=== PATIENT | female | born 1980 | race Caucasian/White ===

== ENCOUNTER 2017-05-16 22:52 | Inpatient (IN) | payer MEDICARE, OTHER ==
[~2017-05-16] VITALS: Ht 157.5 cm; Wt 98.0 kg
[~2017-05-16 22:52] MED LIST: LURA40 PO
[2017-05-16 23:03] VITALS: BP 144/67; PULSE 89; RESP 16; TEMP 98.6; O2SAT 99
--- NOTE | 2017-05-17 01:58 | PD ---
HPI Chief Complaint: Psychiatric Symptoms Time Seen by Provider: 01:37 Travel History International Travel<30 days: No Contact w/Intl Traveler<30days: No Traveled to known affect area: No History of Present Illness HPI 36-year-old white female with a history of bipolar disorder presents emergency Department under [place] act by PD. The patient reportedly according the [place] act and made suicidal homicidal threats while at the [facility]. The patient denies this. The patient states that she's been under a lot of pressure taking care of all parents out the state. She states that her mother and father are both sick and she is been caring for them outside the state [facility]. She has been back in the state [facility] now for the past 6 months. She states that she does not understand why she was placed under Villa act. Even if she had made any statements she feels that this is a form of free speech. She denies any toxic ingestions. She states that she was seen at [facility] 4 days ago for nausea vomiting and a urinary tract infection. She is currently taking antibiotics. She states that her nausea vomiting and abdominal discomfort has resolved. She has no fever chills. No chest pain or shortness of breath. No urinary symptoms. She does smoke. She does not drink. She does not do drugs. Last period was 3 weeks ago. PFSH Past Medical History Narrative Medical Bipolar Bipolar Disorder: Yes Anxiety: Yes Depression: Yes Cancer: No Cardiovascular Problems: Yes Diabetes: No Diminished Hearing: No Endocrine: No Genitourinary: No Hypertension: Yes Immune Disorder: No Musculoskeletal: No Neurologic: No Psychiatric: Yes Reproductive: No Respiratory: No Schizophrenia: Yes (PER HX, PATIENT UNCLEAR) Tetanus Vaccination: Unknown Influenza Vaccination: No ?: Not : 1 Para: 0 : 1 Past Surgical History Narrative Surgical Oral Surgery: Yes (wisdom teeth removed) Social History Alcohol Use: No Tobacco Use: Yes Substance Use: No Allergies-Medications (Allergen,Severity, Reaction): Coded Allergies: shellfish derived (Unverified Allergy, Unknown, 05/16/17) Reported Meds & Prescriptions Reported Meds & Active Scripts Active Reported [Antibiotic] Unknown Dose Latuda (Lurasidone) 40 Mg Tab 40 Mg PO HS Review of Systems Except as stated in HPI: all other systems reviewed are Neg Psychiatric: Positive: Depression, Mood Disorder, No: Anxiety, Suicidal Ideations, Disorder of Thought, Substance Abuse, Homicidal Ideation Physical Exam Narrative GENERAL: Well-nourished, well-developed patient. SKIN: Warm and dry. HEAD: Normocephalic and atraumatic. EYES: No scleral icterus. No injection or drainage. ENT: No nasal drainage noted. Mucous membranes pink. Airway patent. NECK: Supple, trachea midline. Moves head freely without obvious discomfort. CARDIOVASCULAR: Regular rate and rhythm without murmurs, gallops, or rubs. RESPIRATORY: Breath sounds equal bilaterally. No accessory muscle use. GASTROINTESTINAL: Abdomen soft, non-tender, nondistended. EXTREMITIES: No cyanosis or edema. BACK: Nontender without obvious deformity. No CVA tenderness. NEURO: Patient is alert and oriented. no sensorimotor deficits. Nonfocal. Normal speech. PSYCH: No delusions. No auditory or visual hallucinations. Data Data Last Documented VS Vital Signs Date Time Temp Pulse Resp B/P (MAP) Pulse Ox O2 Delivery O2 Flow Rate FiO2 05/17/17 02:46 90 18 124/83 (97) 98 Room Air 05/16/17 23:03 98.6 Orders Orders Complete Blood Count With Diff (05/17/17 01:30) Comprehensive Metabolic Panel (05/17/17 01:30) Ed Urine Pregnancytest Poc (05/17/17 01:30) Psych Screen (05/17/17 01:30) Drug Screen, Random Urine (05/17/17 01:30) Alcohol (Ethanol) (05/17/17 01:30) Salicylates (Aspirin) (05/17/17 01:30) Tylenol (Acetaminophen) (05/17/17 01:30) Urinalysis - C+S If Indicated (05/17/17 01:53) Labs Laboratory Tests Test 05/17/17 01:50 05/17/17 01:55 White Blood Count 11.4 TH/MM3 Red Blood Count 4.13 MIL/MM3 Hemoglobin 12.6 GM/DL Hematocrit 37.3 % Mean Corpuscular Volume 90.3 FL Mean Corpuscular Hemoglobin 30.4 PG Mean Corpuscular Hemoglobin Concent 33.7 % Red Cell Distribution Width 13.9 % Platelet Count 332 TH/MM3 Mean Platelet Volume 8.6 FL Neutrophils (%) (Auto) 57.9 % Lymphocytes (%) (Auto) 31.2 % Monocytes (%) (Auto) 8.3 % Eosinophils (%) (Auto) 1.8 % Basophils (%) (Auto) 0.8 % Neutrophils # (Auto) 6.6 TH/MM3 Lymphocytes # (Auto) 3.6 TH/MM3 Monocytes # (Auto) 0.9 TH/MM3 Eosinophils # (Auto) 0.2 TH/MM3 Basophils # (Auto) 0.1 TH/MM3 CBC Comment DIFF FINAL Differential Comment Blood Urea Nitrogen 21 MG/DL Creatinine 0.85 MG/DL Random Glucose 88 MG/DL Total Protein 7.6 GM/DL Albumin 3.8 GM/DL Calcium Level 8.7 MG/DL Alkaline Phosphatase 84 U/L Aspartate Amino Transf (AST/SGOT) 16 U/L Alanine Aminotransferase (ALT/SGPT) 26 U/L Total Bilirubin 0.2 MG/DL Sodium Level 138 MEQ/L Potassium Level 4.0 MEQ/L Chloride Level 105 MEQ/L Carbon Dioxide Level 23.7 MEQ/L Anion Gap 9 MEQ/L Estimat Glomerular Filtration Rate 75 ML/MIN Salicylates Level 2.5 MG/DL Acetaminophen Level LESS THAN 2.0 MCG/ML Ethyl Alcohol Level LESS THAN 3 MG/DL Urine Color YELLOW Urine Turbidity HAZY Urine pH 6.0 Urine Specific [place] 1.031 Urine Protein TRACE mg/dL Urine Glucose (UA) NEG mg/dL Urine Ketones NEG mg/dL Urine Occult Blood NEG Urine Nitrite NEG Urine Bilirubin NEG Urine Urobilinogen 2.0 MG/DL Urine Leukocyte Esterase MOD Urine RBC 5 /hpf Urine WBC 6 /hpf Urine Squamous Epithelial Cells 1 /hpf Urine Bacteria RARE /hpf Urine Mucus FEW /lpf Microscopic Urinalysis Comment CULT NOT INDICATED Urine Opiates Screen NEG Urine Barbiturates Screen NEG Urine Amphetamines Screen NEG Urine Benzodiazepines Screen POS Urine Cocaine Screen NEG Urine Cannabinoids Screen NEG MDM Medical Decision Making Medical Screen Exam Complete: Yes Emergency Medical Condition: Yes Medical Record Reviewed: Yes Interpretation(s) Laboratory Tests Test 05/17/17 01:50 05/17/17 01:55 White Blood Count 11.4 TH/MM3 Red Blood Count 4.13 MIL/MM3 Hemoglobin 12.6 GM/DL Hematocrit 37.3 % Mean Corpuscular Volume 90.3 FL Mean Corpuscular Hemoglobin 30.4 PG Mean Corpuscular Hemoglobin Concent 33.7 % Red Cell Distribution Width 13.9 % Platelet Count 332 TH/MM3 Mean Platelet Volume 8.6 FL Neutrophils (%) (Auto) 57.9 % Lymphocytes (%) (Auto) 31.2 % Monocytes (%) (Auto) 8.3 % Eosinophils (%) (Auto) 1.8 % Basophils (%) (Auto) 0.8 % Neutrophils # (Auto) 6.6 TH/MM3 Lymphocytes # (Auto) 3.6 TH/MM3 Monocytes # (Auto) 0.9 TH/MM3 Eosinophils # (Auto) 0.2 TH/MM3 Basophils # (Auto) 0.1 TH/MM3 CBC Comment DIFF FINAL Differential Comment Blood Urea Nitrogen 21 MG/DL Creatinine 0.85 MG/DL Random Glucose 88 MG/DL Total Protein 7.6 GM/DL Albumin 3.8 GM/DL Calcium Level 8.7 MG/DL Alkaline Phosphatase 84 U/L Aspartate Amino Transf (AST/SGOT) 16 U/L Alanine Aminotransferase (ALT/SGPT) 26 U/L Total Bilirubin 0.2 MG/DL Sodium Level 138 MEQ/L Potassium Level 4.0 MEQ/L Chloride Level 105 MEQ/L Carbon Dioxide Level 23.7 MEQ/L Anion Gap 9 MEQ/L Estimat Glomerular Filtration Rate 75 ML/MIN Salicylates Level 2.5 MG/DL Acetaminophen Level LESS THAN 2.0 MCG/ML Ethyl Alcohol Level LESS THAN 3 MG/DL Urine Color YELLOW Urine Turbidity HAZY Urine pH 6.0 Urine Specific [place] 1.031 Urine Protein TRACE mg/dL Urine Glucose (UA) NEG mg/dL Urine Ketones NEG mg/dL Urine Occult Blood NEG Urine Nitrite NEG Urine Bilirubin NEG Urine Urobilinogen 2.0 MG/DL Urine Leukocyte Esterase MOD Urine RBC 5 /hpf Urine WBC 6 /hpf Urine Squamous Epithelial Cells 1 /hpf Urine Bacteria RARE /hpf Urine Mucus FEW /lpf Microscopic Urinalysis Comment CULT NOT INDICATED Urine Opiates Screen NEG Urine Barbiturates Screen NEG Urine Amphetamines Screen NEG Urine Benzodiazepines Screen POS Urine Cocaine Screen NEG Urine Cannabinoids Screen NEG Differential Diagnosis MDM: High Differential diagnoses: Schizophrenia, schizoaffective disorder, bipolar, anxiety, depression, adjustment reaction, mood disorder NOS, ODD, depressive disorder NOS, dementia, dementia with agitation, psychosis NOS, substance induced mood disorder, infection,electrolyte abnormality, malingering. Narrative Course Mental health screening discussed with the patient. Psychiatric screen ordered. The patient been medically clear. Diagnosis Primary Impression: Medical clearance for psychiatric admission Additional Impression: bipolar Condition: Stable Tavares Cottrell May 17, 2017 01:58
[2017-05-17 02:16] LABS: BACTERIA, URINE RARE /hpf; BLOOD, URINE NEG (NEG); COMMENT (UR) CULT NOT INDICATED; CULTURE IF INDICATED CULT NOT INDICATED; GLUCOSE,URINE NEG (NEG); KETONE, URINE NEG (NEG); MUCUS URINE FEW /lpf (OCC); NITRITE,URINE NEG (NEG); SQUAMOUS EPITHELIAL CELL URINE 1 /hpf (0-5); URINE COLOR YELLOW (YELLW/STRAW)
[2017-05-17 02:24] LABS: AUTOMATED NEUTROPHIL # 6.6 TH/MM3 (1.8-7.7); BASOPHIL # 0.1 TH/MM3 (0-0.2); BASOPHIL % 0.8 % (0.0-2.0); EOSINOPHIL # 0.2 TH/MM3 (0-0.4); EOSINOPHIL % 1.8 % (0.0-4.0); HEMATOCRIT 37.3 % (35.0-46.0); HEMO FLAGS DIFF FINAL; LYMPH % 31.2 % (9.0-44.0); LYMPHOCYTE # 3.6 TH/MM3 (1.0-4.8); MEAN CELL VOLUME 90.3 FL (80.0-100.0); MEAN CORPUSCULAR HEMOGLOBIN 30.4 PG (27.0-34.0); MEAN CORPUSCULAR HGB CONC 33.7 % (32.0-36.0); MONO % 8.3 % (0.0-8.0); NEUT % 57.9 % (16.0-70.0); PLATELET COUNT 332 TH/MM3 (150-450); RED BLOOD COUNT 4.13 MIL/MM3 (4.00-5.30); RED CELL DISTRIBUTION WIDTH 13.9 % (11.6-17.2); WHITE BLOOD COUNT 11.4 TH/MM3 (4.0-11.0)
[2017-05-17 02:28] LABS: ALT (GPT) 26 U/L (10-53); ANION GAP 9 MEQ/L (5-15); AST (GOT) 16 U/L (15-37); BICARBONATE 23.7 MEQ/L (21.0-32.0); BLOOD UREA NITROGEN 21 MG/DL (7-18); CHLORIDE 105 MEQ/L (98-107); GLOMERULAR FILTRATION RATE 75 ML/MIN (>89); SODIUM (NA) 138 MEQ/L (136-145)
[2017-05-17 02:30] LABS: ALKALINE PHOSPHATASE 84 U/L (45-117); TOTAL BILIRUBIN ADULT 0.2 MG/DL (0.2-1.0)
[2017-05-17 02:37] LABS: ACETAMINOPHEN LESS THAN 2.0 MCG/ML (10.0-30.0); ALCOHOL LESS THAN 3 MG/DL (0-5)
[2017-05-17] MEDS ORDERED: LURA40 PO (02:44)
[2017-05-17] MEDS ORDERED: ANTICRE6 (02:44)
[2017-05-17 02:46] VITALS: BP 124/83; PULSE 90; RESP 18; O2SAT 98
[2017-05-17] MEDS ORDERED: LORazepam 2 MG/ML VIAL IM PRN (06:45)
[2017-05-17] MEDS ORDERED: diphenhydrAMINE HCL 50 MG CAP - HS PRN PO (06:45)
[2017-05-17] MEDS ORDERED: ALUMINUM/MAGNESIUM/SIMETH 30 ML CUP PO PRN (06:45)
[2017-05-17] MEDS ORDERED: ACETAMINOPHEN 325 MG TAB PO PRN (06:45)
[2017-05-17] MEDS ORDERED: MAGNESIUM HYDROXIDE SUSP 30 ML CUP PO PRN (06:45)
[2017-05-17] MEDS ORDERED: diphenhydrAMINE HCL 50 MG/ML VIAL - HS PRN IM (06:45)
[2017-05-17] MEDS ORDERED: NICOTINE 21 MG/24 HR PATCH T-DERMAL SCH (09:00)
[2017-05-17 09:52] VITALS: BP 120/60; PULSE 90; RESP 16; TEMP 97.2; O2SAT 99
--- NOTE | 2017-05-17 16:47 | PD.CONS ---
[facility] By Psychiatry Reason for Consult Medical management. Primary Care Physician Unknown Diagnoses: History of Present Illness Ms. Abdi is a pleasant 36 year old female with a history of PTSD who was villa acted due to [facility] [place]. At the time of this interview, patient breaks down to tears several times. She has been under a lot of stress. She does not report any acute medical concerns. She reports a cyst in her brain that was discovered 10-12 years ago. She also reports a nodule in the upper part of her chest between her breasts. This nodule has been present for many years as well and it is not painful. She denies any dysuria, hematuria. No CP, SOB, fever, chills. No cough, abdominal pain. No changes in bowel or bladder habits. Review of Systems Except as stated in HPI: all other systems reviewed are Neg Past Family Social History Allergies: Coded Allergies: shellfish derived (Unverified Allergy, Unknown, 05/16/17) Past Medical History Patient reports COPD Past Surgical History At the age of 16, she had an . Active Ordered Medications Current Medications Medications (Trade) Dose Ordered Sig/Kallie Route Start Time Stop Time Status Last Admin (Ativan) 1 mg Q6H PRN PO 05/17/17 06:45 (Ativan Inj) 1 mg Q6H PRN IM 05/17/17 06:45 (Benadryl) 50 mg HS PRN PO 05/17/17 06:45 (Benadryl Inj) 50 mg HS PRN IM 05/17/17 06:45 (Tylenol) 650 mg Q4H PRN PO 05/17/17 06:45 (Milk Of Magnesia Liq) 30 ml DAILY PRN PO 05/17/17 06:45 (Mag-Al Plus Susp Liq) 30 ml Q6H PRN PO 05/17/17 06:45 (Habitrol 21 Mg Patch.24 Hr) 1 patch DAILY T-DERMAL 05/17/17 09:00 Miscellaneous Information 1 HS T-DERMAL 05/17/17 21:00 (Latuda) 40 mg HS PO 05/17/17 21:00 05/17/17 20:46 Family History Mother - kidney disease. Father - Hypertension, heart disease. Social History Denies using alcohol, tobacco or illicit drugs. Physical Exam Vital Signs Vital Signs Date Time Temp Pulse Resp B/P (MAP) Pulse Ox O2 Delivery O2 Flow Rate FiO2 05/17/17 09:52 97.2 90 16 120/60 (80) 99 05/17/17 09:11 05/17/17 02:46 90 18 124/83 (97) 98 Room Air 05/16/17 23:03 98.6 89 16 144/67 (92) 99 Physical Exam GENERAL: This is a well-nourished, well-developed patient, in no apparent distress. Breaks down to tears several times. SKIN: No rashes, ecchymoses or lesions. Warm and dry. There is a palpable and moveable nodule in between her breasts in the upper chest, non-tender. HEAD: Atraumatic. Normocephalic. No temporal or scalp tenderness. EYES: Pupils equal round and reactive. No injection or drainage. ENT: Nose without bleeding, purulent drainage or septal hematoma. Airway patent. NECK: Trachea midline. No lymphadenopathy. Supple, nontender, no meningeal signs. CARDIOVASCULAR: Regular rate and rhythm without murmurs, gallops, or rubs. No JVD. RESPIRATORY: Clear to auscultation. Breath sounds equal bilaterally. No wheezes , rales, or rhonchi. GASTROINTESTINAL: Abdomen soft, non-tender, nondistended. No guarding. MUSCULOSKELETAL: Extremities without clubbing, cyanosis, or edema. NEUROLOGICAL: Awake and alert. Cranial nerves II through XII intact. No focal neurological deficits. Normal speech. Laboratory Laboratory Tests Test 05/17/17 01:50 05/17/17 01:55 White Blood Count 11.4 Red Blood Count 4.13 Hemoglobin 12.6 Hematocrit 37.3 Mean Corpuscular Volume 90.3 Mean Corpuscular Hemoglobin 30.4 Mean Corpuscular Hemoglobin Concent 33.7 Red Cell Distribution Width 13.9 Platelet Count 332 Mean Platelet Volume 8.6 Neutrophils (%) (Auto) 57.9 Lymphocytes (%) (Auto) 31.2 Monocytes (%) (Auto) 8.3 Eosinophils (%) (Auto) 1.8 Basophils (%) (Auto) 0.8 Neutrophils # (Auto) 6.6 Lymphocytes # (Auto) 3.6 Monocytes # (Auto) 0.9 Eosinophils # (Auto) 0.2 Basophils # (Auto) 0.1 CBC Comment DIFF FINAL Differential Comment Blood Urea Nitrogen 21 Creatinine 0.85 Random Glucose 88 Total Protein 7.6 Albumin 3.8 Calcium Level 8.7 Alkaline Phosphatase 84 Aspartate Amino Transf (AST/SGOT) 16 Alanine Aminotransferase (ALT/SGPT) 26 Total Bilirubin 0.2 Sodium Level 138 Potassium Level 4.0 Chloride Level 105 Carbon Dioxide Level 23.7 Anion Gap 9 Estimat Glomerular Filtration Rate 75 Salicylates Level 2.5 Acetaminophen Level LESS THAN 2.0 Ethyl Alcohol Level LESS THAN 3 Urine Color YELLOW Urine Turbidity HAZY Urine pH 6.0 Urine Specific [place] 1.031 Urine Protein TRACE Urine Glucose (UA) NEG Urine Ketones NEG Urine Occult Blood NEG Urine Nitrite NEG Urine Bilirubin NEG Urine Urobilinogen 2.0 Urine Leukocyte Esterase MOD Urine RBC 5 Urine WBC 6 Urine Squamous Epithelial Cells 1 Urine Bacteria RARE Urine Mucus FEW Microscopic Urinalysis Comment CULT NOT INDICATED Urine Opiates Screen NEG Urine Barbiturates Screen NEG Urine Amphetamines Screen NEG Urine Benzodiazepines Screen POS Urine Cocaine Screen NEG Urine Cannabinoids Screen NEG Result Diagram: 05/17/1714905/17/17149 Assessment and Plan Problem List: (1) Lipoma of anterior chest wall ICD Code: D17.1 - Benign lipomatous neoplasm of skin and subcutaneous tissue of trunk (2) Depression ICD Code: F32.9 - Major depressive disorder, single episode, unspecified Assessment and Plan Ms. Abdi is a pleasant 36 year old female with a history of PTSD who was [place] acted apparently due to suicidal/homicidal threats made at a restaurant. Patient reports no acute medical concerns. She denies any dysuria, hematuria. - Probable Bipolar disorder - Depression - Management per psychiatry. - Lipoma of anterior chest wall - No erythema, non-tender nodule. - No further work up needed at this time. - If nodular density becomes symptomatic, this can be addressed in the outpatient setting. - Suspected UTI - Urinalysis appears to be unremarkable. Patient does not report any symptoms. - Will avoid any anti-biotics at this point. - Probable hypotension - RN reported systolic BP in the 80s. I requested RN to manually check it. - Repeat BP appears to be within the normal range. - Patient reported COPD - no evidence of COPD. She is currently breathing well in room air. No further treatments. Thank you for the consult. We will peripherally follow this patient. Please contact us with any questions. Katarina Garvey DO May 17, 2017 16:47
[2017-05-17 17:09] VITALS: BP 82/51; PULSE 96; RESP 18; TEMP 98; O2SAT 96
[2017-05-17 17:27] VITALS: BP 115/70; PULSE 82; RESP 18
[2017-05-17] MEDS ORDERED: REMOVE OLD NICOTINE PATCH T-DERMAL SCH (21:00)
[2017-05-17] MEDS ORDERED: LURASIDONE 40 MG TAB PO SCH (21:00)
[2017-05-18 06:23] VITALS: BP 107/54; PULSE 84; RESP 18; TEMP 97.8; O2SAT 96
[2017-05-18] MEDS ORDERED: ACETAMINOPHEN 325 MG TAB PO PRN (09:00)
[2017-05-18] MEDS ORDERED: diphenhydrAMINE HCL 50 MG CAP PO PRN (09:00)
[2017-05-18] MEDS ORDERED: MAGNESIUM HYDROXIDE SUSP 30 ML CUP PO PRN (09:00)
[2017-05-18] MEDS ORDERED: ALUMINUM/MAGNESIUM/SIMETH 30 ML CUP PO PRN (09:00)
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
[2017-05-18] MEDS ORDERED: PILL SPLITTER OTHER PRN (09:30)
[2017-05-18 11:04] LABS: ANION GAP 8 MEQ/L (5-15); BICARBONATE 22.9 MEQ/L (21.0-32.0); BLOOD UREA NITROGEN 15 MG/DL (7-18); CHLORIDE 106 MEQ/L (98-107); GLOMERULAR FILTRATION RATE 86 ML/MIN (>89); POTASSIUM 4.1 MEQ/L (3.5-5.1); SODIUM (NA) 137 MEQ/L (136-145)
[2017-05-18 11:14] LABS: FREE T4 0.81 NG/DL (0.76-1.46); LDL CHOLESTEROL 109 MG/DL (0-99)
[2017-05-18] MEDS: LORazepam 1 MG TAB PO PRN ×2 (11:37→21:49)
[2017-05-18 16:39] LABS: HEMOGLOBIN A1a 1.6 %; HEMOGLOBIN A1b 0.9 %; HEMOGLOBIN Ao 82.3 %; HEMOGLOBIN LA1C 2.2 %; HEMOGLOBIN P3 3.5 %
[2017-05-18 18:42] VITALS: BP 107/59; PULSE 87; RESP 18; TEMP 97.6; O2SAT 95
[2017-05-18] MEDS: LURASIDONE 40 MG TAB PO SCH (21:00)
[2017-05-19 05:53] VITALS: BP 129/64; PULSE 70; RESP 16; TEMP 97.9; O2SAT 94
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
--- NOTE | 2017-05-19 12:45 | HHI.PYPN ---
Subjective Remarks Patient seen in [place] with nurse LUCILLEM counselor Shannan. Chart review, patient compliant medication. Patient somewhat calmer is slightly improved affect. She is somewhat vague today about suicidality homicidality. States she has been on Zoloft in the past which did help her mood and her anxiety. For now we will add Zoloft 25 mg in the a.m. continue our observation assessment Chief Complaint: patient angry making threats to harm self and/or others Review of Systems Except as stated in HPI: all other systems reviewed are Neg Mental Status Examination Appearance: Appropriate Consciousness: Alert Orientation: x4 Motor Activity: Normal gait Speech: Unremarkable Language: Adequate Fund of Knowledge: Adequate Attention and Concentration: Adequate Memory: Unremarkable Mood: Appropriate Affect: Appropriate Thought Process & Associations: Intact Thought Content: Appropriate Hallucination Type: None (denies) Delusion Type: None Suicidal Ideation: No Suicidal Plan: No Suicidal Intention: No Homicidal Ideation: No Homicidal Plan: No Homicidal Intention: No Insight: Poor Judgment: Poor Results Vitals/IOs Vital Signs Date Time Temp Pulse Resp B/P (MAP) Pulse Ox O2 Delivery O2 Flow Rate FiO2 05/19/17 05:53 97.9 70 16 129/64 (85) 94 05/17/17 02:46 Room Air Assessment & Plan Problem List: (1) Schizoaffective disorder, bipolar type ICD Codes: F25.0 - Schizoaffective disorder, bipolar type Assessment & Plan Estimated LOS: days patient continues somewhat depressed psychotic though softening, is compliant medications, see medication adjustment above Justification for Cont. Inpt. At this time patient will decompensate and placed in the lower level of care Discharge Planning Patient continues psychotic and somewhat sad. Needing continued medication adjustment. Probable discharge to her family home when stabilized Request HC Surrog/Guard Advoc?: No Jerome Shukla MD May 19, 2017 12:45
[2017-05-19] MEDS: SERTRALINE HCL 50 MG TAB PO SCH (13:12)
[2017-05-19 18:00] VITALS: BP 145/83; PULSE 89; RESP 17; TEMP 98; O2SAT 96
[2017-05-19] MEDS: LURASIDONE 40 MG TAB PO SCH (21:36)
[2017-05-19] MEDS: hydrOXYzine HCL 50 MG TAB PO PRN (23:08)
[2017-05-20 06:21] VITALS: BP 116/61; PULSE 81; RESP 18; TEMP 97.9; O2SAT 97
[2017-05-20] MEDS: SERTRALINE HCL 50 MG TAB PO SCH (09:35)
--- NOTE | 2017-05-20 13:20 | HHI.PR ---
Subjective Remarks Follow-up visit PTSD, questionable COPD, hyperlipidemia. Patient seen and examined today. Reports she is doing well and feeling a lot better. She plans to stay with her brother in [place] to live there for 30 days and have a primary physician follow her. Denies pain and discomfort. Denies SOB/ dyspnea. Denies chest pain, palpitations, headaches, dizziness. Denies fevers, chills, n/v/d. Denies dysuria. Objective Vitals Vital Signs Date Time Temp Pulse Resp B/P (MAP) Pulse Ox O2 Delivery O2 Flow Rate FiO2 05/20/17 06:21 97.9 81 18 116/61 (79) 97 05/19/17 18:00 98.0 89 17 145/83 (103) 96 Result Diagram: 05/17/17 0150 05/18/17 0932 Objective Remarks GENERAL: This is an obese, well-developed patient, in no apparent distress. SKIN: Warm and dry. HEENT: Normocephalic. Pupils equal round and reactive. Nose without bleeding. Airway patent. NECK: Trachea midline. No JVD. Supple. CARDIOVASCULAR: Regular rate and rhythm without murmurs, gallops, or rubs. RESPIRATORY: Clear to auscultation. Breath sounds equal bilaterally. No wheezes , rales, or rhonchi. GASTROINTESTINAL: Abdomen soft, non-tender, nondistended. Bowel Sounds normoactive x4. MUSCULOSKELETAL: Extremities without clubbing, cyanosis, or edema. NEUROLOGICAL: Awake and alert. Oriented to time, place, person. No focal neuro deficit. Moves all extremities. Normal speech. A/P Problem List: (1) Lipoma of anterior chest wall ICD Code: D17.1 - Benign lipomatous neoplasm of skin and subcutaneous tissue of trunk (2) Depression ICD Code: F32.9 - Major depressive disorder, single episode, unspecified Assessment and Plan Ms. Abdi is a pleasant 36 year old female with a history of PTSD who was [place] acted apparently due to suicidal/homicidal threats made at a restaurant. Patient reports no acute medical concerns. She denies any dysuria, hematuria. Probable Bipolar disorder Depression - Management per psychiatry. Hyperlipidemia - Patient is young, needs to do lifestyle change including exercise, dietary modification low fat low cholesterol, weight loss - All of this discussed with patient. Verbalized understanding - Discuss her increased risk secondary to her weight - Needs to recheck lipid panel in 3 months in outpatient setting. Lipoma of anterior chest wall - No erythema, non-tender nodule. - No further work up needed at this time. - If nodular density becomes symptomatic, this can be addressed in the outpatient setting. Patient reported COPD - no evidence of COPD. - She is currently breathing well in room air. No further treatments. DVT prop - Ambulatory Discussed with patient, nursing, and Dr. Mare Villanueva from Hospitalist standpoint. We will sign off. Reconsult as needed. Eber Burnette May 20, 2017 13:20
--- NOTE | 2017-05-20 14:59 | HHI.PYPN ---
Subjective Remarks Pt seen and discussed with staff. She is guarded and withdrawn on unit,but reports that mood is starting to improve. She did gave permission for mother to visit today. Compliant with medications. No side effects. No aggression Chief Complaint: Pt admitted due to agitation Mental Status Examination Appearance: Appropriate Consciousness: Alert Orientation: x4 Motor Activity: Normal gait Speech: Unremarkable Language: Adequate Fund of Knowledge: Adequate Attention and Concentration: Adequate Memory: Unremarkable Mood: Other (depressed, mild) Affect: Appropriate Thought Process & Associations: Intact Thought Content: Appropriate Hallucination Type: None (denies) Delusion Type: None Suicidal Ideation: No Suicidal Plan: No Suicidal Intention: No Homicidal Ideation: No Homicidal Plan: No Homicidal Intention: No Insight: Poor Judgment: Poor Results Vitals/IOs Vital Signs Date Time Temp Pulse Resp B/P (MAP) Pulse Ox O2 Delivery O2 Flow Rate FiO2 05/20/17 06:21 97.9 81 18 116/61 (79) 97 05/17/17 02:46 Room Air Assessment & Plan Problem List: (1) Schizoaffective disorder, bipolar type ICD Codes: F25.0 - Schizoaffective disorder, bipolar type Assessment & Plan Continue current tx plan. Estimated LOS: days Justification for Cont. Inpt. risk of decompensation Request HC Surrog/Guard Advoc?: Margarita Grigsby MD May 20, 2017 14:59
[2017-05-20 18:27] VITALS: BP 118/93; PULSE 86; RESP 18; TEMP 98.6; O2SAT 98
[2017-05-20] MEDS: LURASIDONE 40 MG TAB PO SCH (21:35)
[2017-05-20] MEDS: hydrOXYzine HCL 50 MG TAB PO PRN (23:40)
[2017-05-21 05:52] VITALS: BP 97/53; PULSE 79; RESP 16; TEMP 97.6; O2SAT 97
[2017-05-21] MEDS: SERTRALINE HCL 50 MG TAB PO SCH (09:10)
--- NOTE | 2017-05-21 13:36 | HHI.PYPN ---
Subjective Remarks Pt seen and discussed with staff. She has been seclusive to her room, but mood lability decreased. Slowly increasing communication with her mother. No medication side effects. She denies SI/HI Chief Complaint: Pt admitted due to agitation Mental Status Examination Appearance: Appropriate Consciousness: Alert Orientation: x4 Motor Activity: Normal gait Speech: Unremarkable Language: Adequate Fund of Knowledge: Adequate Attention and Concentration: Adequate Memory: Unremarkable Mood: Other (depressed, mild) Affect: Appropriate Thought Process & Associations: Intact Thought Content: Appropriate Hallucination Type: None (denies) Delusion Type: None Suicidal Ideation: No Suicidal Plan: No Suicidal Intention: No Homicidal Ideation: No Homicidal Plan: No Homicidal Intention: No Insight: Poor Judgment: Poor Results Vitals/IOs Vital Signs Date Time Temp Pulse Resp B/P (MAP) Pulse Ox O2 Delivery O2 Flow Rate FiO2 05/21/17 05:52 97.6 79 16 97/53 (68) 97 Assessment & Plan Problem List: (1) Schizoaffective disorder, bipolar type ICD Codes: F25.0 - Schizoaffective disorder, bipolar type Assessment & Plan Continue current tx plan. Estimated LOS: days Justification for Cont. Inpt. risk of decompensation Request HC Surrog/Guard Advoc?: No Margarita Velazco MD May 21, 2017 13:36
[2017-05-21 17:07] VITALS: BP 115/66; PULSE 73; TEMP 98.5; O2SAT 18
[2017-05-21] MEDS: LURASIDONE 40 MG TAB PO SCH (21:17)
[2017-05-21] MEDS: hydrOXYzine HCL 50 MG TAB PO PRN (21:57)
[2017-05-22 06:20] VITALS: BP 112/57; PULSE 73; RESP 18; TEMP 98.5; O2SAT 97
[2017-05-22] MEDS: SERTRALINE HCL 50 MG TAB PO SCH (08:35)
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
[2017-05-22 18:00] VITALS: BP 121/58; PULSE 67; RESP 20; TEMP 98.3; O2SAT 95
[2017-05-22] MEDS: LURASIDONE 40 MG TAB PO SCH (21:18)
[2017-05-22] MEDS: hydrOXYzine HCL 50 MG TAB PO PRN (21:47)
[2017-05-23 06:04] VITALS: BP 131/58; PULSE 94; RESP 18; TEMP 98.6; O2SAT 97
[2017-05-23] MEDS: SERTRALINE HCL 50 MG TAB PO SCH (09:54)
--- NOTE | 2017-05-23 14:53 | HHI.PYPN ---
Subjective Remarks Patient seen in her room with medical student mary,, chart review, patient compliant medication. Patient's mood continues to improve, she is showing good eye contact now denies suicidality homicidality voices or visions. She also is now stating that she wishes to stay living with her mother, does not feel that relocating towards her brother will be right at this time. She also showing some insight into keeping proper boundaries related to father's legal issues the patient continues to do good consider discharge within 24 hours Chief Complaint: Pt admitted due to agitation Review of Systems Except as stated in HPI: all other systems reviewed are Neg Mental Status Examination Appearance: Appropriate Consciousness: Alert Orientation: x4 Motor Activity: Normal gait Speech: Unremarkable Language: Adequate Fund of Knowledge: Adequate Attention and Concentration: Adequate Memory: Unremarkable Mood: Other (depressed, mild) Affect: Appropriate Thought Process & Associations: Intact Thought Content: Appropriate Hallucination Type: None (denies) Delusion Type: None Suicidal Ideation: No Suicidal Plan: No Suicidal Intention: No Homicidal Ideation: No Homicidal Plan: No Homicidal Intention: No Insight: Poor Judgment: Poor Results Vitals/IOs Vital Signs Date Time Temp Pulse Resp B/P (MAP) Pulse Ox O2 Delivery O2 Flow Rate FiO2 05/23/17 06:04 98.6 94 18 131/58 (82) 97 Assessment & Plan Problem List: (1) Schizoaffective disorder, bipolar type ICD Codes: F25.0 - Schizoaffective disorder, bipolar type Assessment & Plan Estimated LOS: days patient to visual improvement she is compliant with her medications. Now denies suicidality homicidality voices or visions she feels medications are working well. X-ray some insight into issues with her mother and with her father. Gilberto continues going as it is consider discharge tomorrow Justification for Cont. Inpt. At this time patient will decompensate the placed in a lower level of care Discharge Planning Consider discharge tomorrow Request HC Surrog/Guard Advoc?: No Jerome Shukla MD May 23, 2017 14:53
[2017-05-23 18:55] VITALS: BP 119/58; PULSE 93; RESP 18; TEMP 98.1; O2SAT 96
[2017-05-23] MEDS: LURASIDONE 40 MG TAB PO SCH (21:00)
[2017-05-23] MEDS: hydrOXYzine HCL 50 MG TAB PO PRN (21:00)
[2017-05-24 05:30] VITALS: BP 97/48; PULSE 65; RESP 17; TEMP 98.1
[2017-05-24] MEDS: SERTRALINE HCL 50 MG TAB PO SCH (09:19)
[2017-05-24] MEDS ORDERED: LURA40 PO (12:44)
[2017-05-24] MEDS ORDERED: ZOLO25TA PO (12:44)
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
== END 2017-05-24 15:50 | disposition home or self-care (01) | DRG 885 ==
LOC: NEPD 22:52 → NEDA 05-17 06:29 → H260 05-17 09:35
PROVIDERS: ADMIT Psychiatry & Neurology Psychiatry; ATTEND Psychiatry & Neurology Psychiatry
DX: F25.0 Schizoaffective disorder, bipolar type (principal); J44.9 Chronic obstructive pulmonary disease, unspecified; Z72.0 Tobacco use; F43.10 Post-traumatic stress disorder, unspecified; D17.9 Benign lipomatous neoplasm, unspecified; E66.9 Obesity, unspecified; Z68.39 Body mass index [BMI] 39.0-39.9, adult
CPT/HCPCS: 80048; 80053; 80061; 80307; 81001; 83036; 84439; 84443; 84703; 85025; 86592; Q0163